=== PATIENT | female | born 1965 | race Caucasian/White ===

== ENCOUNTER 2023-10-20 09:30 | Outpatient (RCR) | payer MEDICAID, SELFPAY ==
--- NOTE | 2023-09-27 14:44 | HP.PTEVAL_ITS ---
Patient's Visit Information Visit Information Visit Information: GLENDA HAMPTON is a 58 year old F referred to Physical Therapy by Dr. Jurgen Jacobs MD with a diagnosis of Pain in L knee. Date of Evaluation: 09/27/23 Physical Therapist: Franco Vidales DPT Visit Plan Frequency: 1x/Week Duration: 6 Weeks Plan: Pt to attend aquatic therapy for 1x per week for 4 weeks, can drop to every other week if desired, pt motivated to become indep with ex quickly d/t cost 1) Address quad, hip, and glute strength 2) Stretch quads, ITB (HEP: glute bridges, LAQ, prone quad stretch) Subjective Subjective: Pt presents to PT with advanced knee arthritis and has been referred to Dr. Jacobs, here for pool therapy and will be receiving knee replacement late r this year. Pt would like to get back to being able to go out with less pain and stiffness, walking around at the store makes pain 10/10. Pt reports getting a pocket of fluid in lateral L knee after walking around for a while. Pt used knee brace to help with walking but was told not to wear it anymore. Sleeping is going okay, but gets stiff and needs to bend. Pt reports having to sit down multiple times per day to help with pain, rest, heat, and ice also help with pain. Pain gets down to 1 or 2/10 at best. Does not take pain meds. Went to chiropractor and was given exercises (SAQs) and feels they make her leg tired. Pt likes to bike, swim, and play with grandson. Pt has 2 steps at home and are painful. 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 Pain Left Knee: Pain Intensity (Out of 10): 2 Pain Intensity Range: 1 and 10 Objective Objective: ROM: L knee ext 0deg, flex 105 AROM, PROM 110 with pain MMT: global LE strength 3+/5 with some back pain during hip testing JOINT PLAY: little to no movement L patella, had some increased movement and soreness with gentle mobs GAIT: antalgic with decreased knee flex, mild valgus in L stance STAIRS: pt very hesitant to step down with RLE first, knee very unstable and painful when controlling descent STS: painful when in wbing, pt takes a few seconds to stand before beginning to walk PALPATION: tightness in L quad, L ITB, TTP distal insertion ITB and adductors, overdeveloped L peroneals and TTP Pt to participate in aquatic therapy for 4 weeks and perform HEP and ex in pool at home on her own in preparation for L knee replacement. Pt overall has LLE weakness and decreased knee ROM d/t advanced arthritis, leading to pain with prolonged walking and feeling of instability on stairs. 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 Pt would benefit from PT to address global LE strengthening in preparation for sx. PT Franco Vidales, direct supervision throughout eval. Balance/Special Test Scores Lower Extremity Functional Score: 30 Goals Goal 1:: Pt will report <5/10 pain at worst with walking through grocery store Goal Time Frame: 2-4 Weeks Goal 2:: Pt will improve global LE strength to 4/5 and no pain Goal Time Frame: 2-4 Weeks Goal 3:: Pt will demonstrate <2/10 with 5x STS Goal Time Frame: 2-4 Weeks Goal 4:: Pt will improve LEFS score to 40/80 Goal Time Frame: 2-4 Weeks Goal 5:: Pt will be able to sleep >6 hours without pain waking her up at night Goal Time Frame: 2-4 Weeks Rehabilitation Potential Physical Therapy Diagnosis: Pt presents to therapy with L knee pain and decreased strength/ROM secondary to advanced arthritis. Pt would benefit from PT services, specifically aquatic therapy, to address LE strength and tolerance to WBing with less pain. Rehabilitation Potential: Fair Anticipated Interventions Patient/Client Instruction: Educate patient on: Condition and Plan of Care For the Purpose of:: To decrease pain, To decrease swelling/inflammation, To increase ROM, To improve muscle performance and motor function, To improve ability to perform ADL's, To increase tolerance to activity/condition/position, To improve performance and independence with ADL's, To improve ability of physical actions for home/community/work/leisure, To improve gait and locomotor functions, To decrease soft tissue restriction, To increase flexibility/ROM, To improve safety with gait, To assume or resume ADL's, To foster healthy habits, To improve self management, To improve ability to perform tasks related to life management and To improve tolerance to ADL's Therapeutic Exercise to Include: Strength training and In an aquatic setting For the Purpose of:: To decrease pain, To improve muscle performance and motor function, To improve ability to perform ADL's, To improve performance and in dependence with ADL's, To improve ability of physical actions for home/community/work/leisure, To improve gait and locomotor functions, To decrease soft tissue restriction, To improve safety with gait, To assume or resume ADL's, To foster healthy habits, To improve self management, To improve ability to perform tasks related to life management and To improve tolerance to ADL's Text: Thank you for the opportunity to evaluate your patient. For Medicare and Medicare HMO plans, please review the plan of care and approve it. It will need to be FAXED BACK to us at [phone] for Medicare purposes. For Medicare only, by signing this I certify the plan of care. Please let me know if there are questions or concerns regarding this plan of care. Physician Signature: Date:
--- NOTE | 2023-11-16 09:41 | HP.PTDCSUM ---
Discharge Summary D/C summary: It has been my pleasure to treat GLENDA HAMPTON referred by Dr. Jurgen Jacobs MD, with the diagnosis of Pain in L knee for a total of 5 visit(s). Discharge Date: Please see the following information for a summary of their discharge status. Subjective Subjective: Pt reports that knee isn't bothering her as much today. Pain Left Knee: Pain Intensity (Out of 10): 4 Objective Objective/Function: Pt states that today is her last day of AT. Goals Goal 1:: Pt will report <5/10 pain at worst with walking through grocery store Goal 2:: Pt will improve global LE strength to 4/5 and no pain Goal 3:: Pt will demonstrate <2/10 with 5x STS Goal 4:: Pt will improve LEFS score to 40/80 Goal 5:: Pt will be able to sleep >6 hours without pain waking her up at night Plan Plan: Pt to attend aquatic therapy for 1x per week for 4 weeks, can drop to every other week if desired, pt motivated to become indep with ex quickly d/t cost 1) Address quad, hip, and glute strength 2) Stretch quads, ITB (HEP: glute bridges, LAQ, prone quad stretch) D/C Information d/c sentence: If there are questions or concerns regarding this patient's physical therapy, please feel free to call me at [phone]. Thank you for the referral of this patient. Sincerely, Franco Vidales, DPT Balance/Gait/Functional tests Balance/Special Test Scores Lower Extremity Functional Score: 30
== END 2023-10-20 19:00 | disposition home or self-care (01) ==
LOC: PT 09:30
PROVIDERS: PCP Family Medicine; Referring Provider Specialist; Visit Provider Specialist
DX: M25.562 Pain in left knee (principal)
CPT/HCPCS: 97113; 97161

== ENCOUNTER → 2024-01-25 | Outpatient (CLI) | payer MEDICAID, SELFPAY ==
--- NOTE | 2024-01-25 06:42 | CT_ITS ---
STUDY: CT LEFTLOWER EXTREMITY WITHOUT CONTRAST REASON FOR EXAM: Female, 58 years old. PAIN IN LEFT KNEE NI RADIATION DOSAGE (If Supplied By Facility): CTDIvol = ( 19.29 ) mGy, DLP = ( 1410.19 ) mGycm TECHNIQUE: Thin section transaxial imaging of the ankle was obtained, with sagittal and coronal reconstructed images. Individualized dose optimization techniques were used for this CT. COMPARISON: X-ray of the left knee dated August 27, 2023 Hip findings: Normal femoral head, neck, intertrochanteric region and visualized proximal femur. Normal acetabulum. There is mild to moderate axial narrowing of the bilateral hip joints. No cortical spurring is present. No demonstrated subcortical cyst or avascular necrosis. No occult fractures are seen. Normal visualized superior and inferior pubic rami and ischial tuberosities. Normal superior and inferior pubic rami. Normal pubic symphysis. Normal ischial tuberosity. Normal origin of the hamstring tendons. Rectosigmoid diverticulosis is present. The remaining visualized intrapelvic structures are grossly unremarkable. Knee findings: The medial compartment is severely narrowed with [id number] contact and moderate to bulky peripheral cortical osteophyte formation on both sides of the joint space. The inner aspect of the lateral compartment is mildly narrowed. Mild peripheral cortical osteophytes are also present. Large loose bodies are present in the anterior and posterior aspect of the joint space. A small joint effusion is also present. Normal proximal tibiofibular articulation. The patellofemoral compartment is moderately narrowed, and with secondary cortical osteophyte formation as well. The quadriceps tendon is grossly normal. The patellar tendon is grossly normal. Normal Hoffa''s fat pad. The soft tissues are unremarkable. CT/Extremity Lower without Contra IMPRESSION: 1. Tricompartmental DJD of the knee joint which is severe in the medial compartment Electronically Signed: Keny Davis MD at 8:17 EDT ,
== END | disposition home or self-care (01) ==
LOC: CT 06:42
PROVIDERS: PCP Family Medicine; Referring Provider Specialist; Visit Provider Specialist
DX: M25.562 Pain in left knee (principal); M17.12 Unilateral primary osteoarthritis, left knee
CPT/HCPCS: 73700

== ENCOUNTER 2024-02-14 06:38 | Observation (INO) | payer MEDICAID, SELFPAY ==
--- NOTE | 2024-01-25 06:41 | EKG12_ITS ---
Test Reason : PREOP Blood Pressure : / mmHG Vent. Rate : 057 BPM Atrial Rate : 057 BPM P-R Int : 116 ms QRS Dur : 090 ms QT Int : 430 ms P-R-T Axes : 019 047 041 degrees QTc Int : 418 ms Sinus bradycardia Otherwise normal ECG Confirmed by CAROLYNN ZHONG, GARRY ([id number]), editorial director BOY RAMIREZ ([id number]) on 01/25/2024 2:15:02 PM Referred By: Jurgen Jacobs Confirmed By:GARRY PRADHAN MD
[2024-01-25 08:41] LABS: Absolute Lymphocyte Count 3.18 X10^3/uL (0.83-4.51); Absolute Neutrophil Count 3.8 X10^3/uL (2.0-7.7); Basophil% 1.3 % (0-1); Eosinophil# 0.24 X10^3/uL; Eosinophils% 3.1 % (0-5); Hematocrit 42.8 % (37-47); Hemoglobin 13.9 g/dL (12.0-15.0); Lymphocyte # 3.18 X10^3/ul (0.83-4.51); Lymphocyte % 40.5 % (19-41); Mean Corp Hgb Conc 32.5 g/dL (32-36); Mean Corpuscular Hgb 31.3 pg (27.0-32.0); Mean Corpuscular Volume 96.4 fL (81-99); Mean Platelet Vol. 10.4 fl (6.2-12.0); Monocyte# 0.48 X10^3/uL; Monocyte% 6.1 % (0-10); NRBC Flagged by Analyzer 0 % (0-5); Neutrophil # 3.83 X10^3/uL (2.7-7.7); Neutrophil % 48.7 % (47-70); Platelet Count 300 K/mm3 (150-450); RBC Distribution Width CV 13.2 % (11.6-14.6); RBC Distribution Width SD 47.4 fl (35.1-43.9); Red Blood Count 4.44 M/mm3 (4.2-5.4); White Blood Count 7.9 K/mm3 (4.4-11.0)
[2024-01-25 09:06] LABS: Partial Thromboplast Time 28.9 Seconds (24.1-36.2); Prothrombin Time (Protime)PT. 12.8 SECONDS (11.7-14.9)
[2024-01-25 09:21] LABS: Anion Gap 6 (5-15); BUN 15 mg/dL (7-18); BUN/Creat Ratio 18.8 RATIO (10-20); Calcium,Total 9.8 mg/dL (8.5-10.1); Chloride 107 mmol/L (98-107); EST Glomerular Filtration Rate 79 mL/min (>60); Est Glom Filt Rate - Afr Amer 95 mL/min (>60); Glucose 95 mg/dL (74-106); Sodium Level 140 mmol/L (136-145)
[2024-01-25 09:32] LABS: AST(SGOT) 19 U/L (15-37); Alanine Aminotransfer ALT/SGPT 21 U/L (13-56); Albumin, Serum 3.7 g/dL (3.2-5.0); Alkaline Phosphatase 85 U/L (45-117); Bilirubin, Direct 0.14 mg/dL (0.00-0.30); Globulin 4.1 g/dL (2.2-4.2); Magnesium 2.3 mg/dL (1.6-2.6); Protein, Total 7.8 g/dL (6.4-8.2)
[2024-02-14] VITALS (13 sets, daily range): BP systolic 106–135; BP diastolic 53–102; PULSE 60–88; RESP 16–20; TEMP 35.7–36.9; O2SAT 92–100; BMI 43.4
[2024-02-14] MEDS: Celecoxib 200 MG Capsule 400 MG PO (07:13)
[2024-02-14] MEDS: Acetaminophen 500 MG Tablet 1000 MG PO ×2 (07:13→21:10)
[2024-02-14] MEDS: Gabapentin 600 MG Tablet PO (07:13)
--- NOTE | 2024-02-14 07:23 | PRE.ANES_ITS ---
ASA Classification* ASA Classification ASA Classification: 3 Assessment & Plan Anesthesia* Anesthesia Assessment Anesthesia Assessment: Discussed sedation and/or anesthesia options, risks, benefits, and alternatives with patient/parents/legal guardian/POA. Questions invited. The patient/parents/legal guardian/POA seems to understand and agrees to proceed with anesthesia plan. Reviewed the physical assessment, medical history, allergy history and patient home medications list prior to surgery/procedure/anesthetic and documented any changes. Performed airway and anesthesia risk assessments. Anesthesia Type Anesthesia Type: Spinal (ga bkup. 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 When Was Last Pacemaker Check QUESTION #4 FULL TEXT: You/Your Family Experience fever (hyperthermia) with Anesthesia Last Oral Intake Last Oral intake: Last Oral Intake NPO since 04:30 02/14/24 07:08 Meds taken in AM with sips of No 02/14/24 07:08 water? Meds patient instructed to take am of surgery PONV PONV - pipe organ mechanic apprentice: PONV - pipe organ mechanic apprentice Female Yes 01/20/24 08:10 HX of Motion Sickness No 01/20/24 08:10 HX of N/V After Surgery No 01/20/24 08:10 Non-Smoker Yes 01/20/24 08:10 Duration of Surgery greater Yes 01/20/24 08:10 than 60 minutes Number of Risk Factors 3 01/20/24 08:10 PONV Score Moderate Risk 01/20/24 08:10 Height & Weight Height & Weight: Anesthesia: Height & Weight Height 5 ft 02/14/24 07:08 Weight: 100.879 kg 02/14/24 07:08 Body Mass Index (BMI) 43.4 02/14/24 07:08 Respiratory Assessment Respiratory Assessment - pipe organ mechanic apprentice: Respiratory Tract Infection Hx - pipe organ mechanic apprentice Hx Respiratory Tract Infection No 01/20/24 08:10 STOP Sleep Apnea STOP Sleep Apnea - pipe organ mechanic apprentice: STOP Sleep Apnea - pipe organ mechanic apprentice Hx Hypertension No 01/20/24 08:10 Hx Sleep Apnea No 01/20/24 08:10 CPAP BIPAP Do you snore loudly (louder No 01/20/24 08:10 than talking or can be heard Do you often feel tired/ No 01/20/24 08:10 fatigued/ sleepy during daytime? Has anyone observed you stop No 01/20/24 08:10 breathing during sleep? STOP Results Negative 01/20/24 08:10 QUESTION #5 FULL TEXT : Do you snore loudly (louder than talking or can be heard through closed doors)? 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 Specify any problems Hx of Preganancy in last 3 No 01/20/24 08:10 Months Nurse Filling Out Transfusion [id number] 01/20/24 08:10 & Questions: Date: 01/20/24 01/20/24 08:10 Time: 08:15 01/20/24 08:10 Patient unable to answer at this time (ie. confused, unrespo /Reproduction History /Reproductive History - pipe organ mechanic apprentice: /Reproductive Hx- pipe organ mechanic apprentice Hx Now Gestational Age (in weeks): EDC: Hx Hx Para Hx Section SAB Active Medications Active Medications: Current Medications Generic Name Dose Route Start Last Admin Trade Name Freq PRN Reason Stop Dose Admin Acetaminophen 1,000 mg 02/14/24 08:45 Acetaminophen 500 Mg Tablet PO 02/14/24 08:46 X1 ONE Acetaminophen 1,000 mg 02/14/24 14:00 Acetaminophen 500 Mg Tablet PO Q8 [facility] Aspirin 81 mg 02/14/24 10:00 Aspirin 81 Mg Tab.Chew PO BID [facility] Celecoxib 400 mg 02/14/24 08:45 Celecoxib 200 Mg Capsule PO 02/14/24 08:46 X1 ONE Cholecalciferol 125 mcg 02/14/24 10:00 Cholecalciferol (Vit D3) 125 Mcg Capsule (5,000 Units) PO DAILY [facility] Sodium Chloride 77.9 ml/ 0 ml 02/14/24 08:45 Ropivacaine 200 mg/ OPERA.SITE 02/14/24 08:46 Epinephrine HCl 0.6 mg/ X1 ONE Ketorolac Tromethamine 30 mg/ Morphine Sulfate 5 mg Dexamethasone Sodium Phosphate 10 mg 02/14/24 08:45 Dexamethasone 10 Mg/Ml Vial IV 02/14/24 08:46 X1 ONE Enteral Nutritional Formula 237 ml 02/14/24 08:00 Ensure Surgery 237 Ml Liquid PO TIDCM [facility] Famotidine 20 mg 02/14/24 10:00 Famotidine 20 Mg Tablet PO DAILY [facility] Gabapentin 600 mg 02/14/24 08:45 Gabapentin 600 Mg Tablet PO 02/14/24 08:46 X1 ONE Lactated Ringer's 1,000 mls @ 999 mls/hr 02/14/24 08:45 IV 02/14/24 09:45 .Q1H1M [facility] Cefazolin Sodium 2 gm/ Sodium 110 mls @ 150 mls/hr 02/14/24 08:45 Chloride IV 02/14/24 09:28 PREOP ONE Tranexamic Acid 1,000 mg/ 110 mls @ 660 mls/hr 02/14/24 08:45 Sodium Chloride IV 02/14/24 08:54 X1 ONE Tranexamic Acid 1,000 mg/ 110 mls @ 660 mls/hr 02/14/24 08:45 Sodium Chloride IV 02/14/24 08:54 X1 ONE Lactated Ringer's 1,000 mls @ 999 mls/hr 02/14/24 08:45 IV 02/14/24 09:45 .Q1H1M [facility] Lactated Ringer's 1,000 mls @ 125 mls/hr 02/14/24 08:45 IV 02/14/24 16:44 .Q8H [facility] Magnesium Sulfate 1 gm/ 102 mls @ 408 mls/hr 02/14/24 08:45 Dextrose IV 02/14/24 08:59 X1 ONE Lactated Ringer's 1,000 mls @ 15 mls/hr 02/14/24 06:45 IV .Q48H [facility] Cefazolin Sodium 1 gm in 50 mls @ 150 mls/hr 02/14/24 14:00 IV 02/14/24 22:19 Q8 [facility] Insulin Human Lispro 1 - 6 unit 02/14/24 08:45 Insulin Lispro 100 Unit/Ml Insuln.Pen SC 02/14/24 18:00 Q4H PRN PRN BG>/= 180, SEE PROTOCOL Protocol Ketorolac Tromethamine 15 mg 02/14/24 06:38 Ketorolac 15 Mg/Ml Vial IV 02/16/24 06:39 Q6H PRN PRN Pain Score 1-5 Meloxicam 7.5 mg 02/16/24 10:00 Meloxicam 7.5 Mg Tablet PO BID [facility] Morphine Sulfate 2 - 4 mg 02/14/24 06:38 Morphine 2 Mg/Ml Syringe IV Q2H PRN PRN Pain Score 6-10 Ondansetron HCl 4 mg 02/14/24 06:38 Ondansetron 4 Mg/2 Ml Vial IV Q8H PRN PRN NAUSEA Oxycodone HCl 5 - 10 mg 02/14/24 06:38 Oxycodone 5 Mg Tablet PO Q4H PRN PRN Pain Score 4-10 Promethazine HCl 12.5 mg 02/14/24 06:38 Promethazine 25 Mg/Ml Syringe IM Q6H PRN PRN NAUSEA/VOMITING Protocol Senna/Docusate Sodium 2 tablet 02/14/24 10:00 Senna/Docusate Sodium 1 Tablet PO BID [facility] Sodium Chloride 5 - 15 ml 02/14/24 08:45 0.9% Nacl Peripheral Flush Adult/Peds IV UD PRN SALINE FLUSH Anesthesia Focused Assessment* Temperature: 97.3 F Pulse Rate: 81 Blood Pressure: 133/68 Respiratory Rate: 16 Pulse Ox: 99 Airway Assessment Mouth opens: >3 cm Mallampati Score: II Focused Labs Anesthesia Preop lab: CBC WBC 7.9 K/mm3 (4.4-11.0) 01/25/24 07:15 RBC 4.44 M/mm3 (4.2-5.4) 01/25/24 07:15 Hgb 13.9 g/dL (12.0-15.0) 01/25/24 07:15 Hct 42.8 % (37-47) 01/25/24 07:15 Plt Count 300 K/mm3 (150-450) 01/25/24 07:15 CHEMISTRY Potassium 4.0 mmol/L (3.5-5.1) 01/25/24 07:15 Sodium 140 mmol/L (136-145) 01/25/24 07:15 Magnesium 2.3 mg/dL (1.6-2.6) 01/25/24 07:15 BUN 15 mg/dL (7-18) 01/25/24 07:15 Creatinine 0.80 mg/dL (0.55-1.02) 01/25/24 07:15 Glucose 95 mg/dL (74-106) 01/25/24 07:15 COAG PT 12.8 SECONDS (11.7-14.9) 01/25/24 07:15 Review of Systems (Anesthesia) ROS Narrative System reviewed and no additional complaints, except as documented. ON LICENSE OF [facility] Medical History Wears glasses Arthritis Easy bruising Former smoker Left knee pain Scoliosis Home Medications ?Medication ?Instructions ?Recorded ?Last Taken ?Type cholecalciferol (vitamin D3) 125 125 mcg PO DAILY 02/05/21 02/08/24 History mcg (5,000 unit) capsule Allergy/AdvReac Type Severity Reaction Status Date / Time No Known Allergies Allergy Verified 02/14/24 07:05 Social History Smoking Status: Former smoker
[2024-02-14] MEDS: Lactated Ringers 1,000 ML 999 ML IV ×2 (07:26→08:15)
[2024-02-14] MEDS: Magnesium 1 GM over 15 mins IV (07:27)
[2024-02-14] MEDS: Lactated Ringers 1,000 ML 75 ML IV ×2 (07:33→21:18)
[2024-02-14 08:07] LABS: Bedside Glucose 85 mg/dL (74-106)
[2024-02-14] MEDS: Cefazolin 2 GM in 0.9% Normal Saline (100mL Bag) 100 ML IV (08:22)
--- NOTE | 2024-02-14 08:45 | KNEE_PTH ---
PATIENT: GLENDA HAMPTON LOC: [facility]3 U#:[id number] AGE/SX: 58/F ROOM: [facility]315 RE02/14/[address]: Dr. Jurgen Jacobs MD : 1965 BED: 1 DIS: 02/15/2024 SPEC #: [id number] RECD: 02/14/24 10:50 STATUS: VELIA REAlexsandra #: [id number] TRU: 02/14/24 08:[address]: Jurgen Jacobs DEPT: SURGICAL PATHOLOGY RECD BY: Jessi Verduzco ENTERED: 02/14/24 11:19 SP TYPE: TOTAL KNEE OTHR DR: Dr. Timo Baumann MD Tissues: Knee, NOS Procedures: Decalcification bone/plaque Surgery Specimen Level IV HEADER OPERATION: LETI, robotic assisted left total knee arthroplasty PRE-OP DIAGNOSIS: Grade IV osteoarthritis left knee TISSUE SUBMITTED: Left bone and soft tissue MICROSCOPIC DIAGNOSIS Bone and soft tissue, left knee, total knee replacement/resection: Pieces of bone with degenerative osteoarthritic changes. Fibroadipose tissue, fibroconnective tissue and reactive synovial tissue. ASAD: 02/17/2024 MICROSCOPIC DESCRIPTION Slides are reviewed. GROSS DESCRIPTION Received is one container designated bone and soft tissue left knee. The specimen consists of multiple fragments of gibson-yellow bone measuring in aggregate 11.0 x 11.0 x 3.5cm. Also in the specimen container are multiple fragments of yellow-white soft tissue measuring in aggregate 6.0 x 3.0 x 2.0cm. A number of bony fragments contain articular surfaces consistent with tibial plateau and femoral condyle and displaying prominent osteophyte formation, eburnation and bone erosion. Games Dealer sections are submitted in two cassettes as follows: 1 - soft tissue, 2 - bone after decalcification. / ASAD/ 02/14/2024 TC:5 CPT: 39910, 55152
[2024-02-14] MEDS: TXA 1000mg in NS100 100ml (IVPB at Incision) 660 MG IV (08:47)
[2024-02-14] MEDS: dexAMETHasone 10 MG/ML Vial IV (09:31)
[2024-02-14] MEDS: TXA 1000mg in NS100 100ml (IVPB at Closure) 660 MG IV (09:53)
--- NOTE | 2024-02-14 09:59 | PCM.OPRPT ---
Report of Operation Date of Procedure: 02/14/24 Pre-Operative Diagnosis: Left knee primary osteoarthritis Post-Operative Diagnosis: Left knee primary osteoarthritis Surgery/Procedure Performed:: Left knee minimally invasive robotic assisted total knee replacement Description of Surgical Findings:: Stable knee with good patella tracking Surgeon: Jurgen Jacobs civil preparedness coordinator: Henok Miranda Type of Anesthesia: Spinal Anesthesiologist: Galileo Rogers Special Medications: 2 g Ancef, 1 g TXA at incision, 1 g TXA closure, 10 mg Decadron, joint cocktail (5 mg Duramorph, 30 mL of 0.5% Ropivicaine, 1000 units of epinephrine, 30 mg of Toradol) Specimen's removed: Bony cuts Estimated Blood Loss (mL): 100 Fluids Replaced: 1600 mL crystalloid Description of Procedure: Implants used: 1. Thompson size 4 triathlon cruciate retaining distal femoral press-fit component 2. [place] size 5 press-fit tritanium tibial baseplate 3. Thompson X3 13 mm CS polyethylene 4. [place] X3 29mm asymmetric patella Brief history operative indications: 58-year-old f with history of left knee osteoarthritis with radiographic findings with loss of joint space, osteophyte formation and subchondral sclerosis. Failed conservative measures as mentioned in the H&P. Discussion of total knee arthroplasty as well as risk and benefits were discussed the patient including but not limited to blood loss, DVTs, PEs, neurovascular damage, general risk of anesthesia including loss of life, and stiffness or instability were discussed with patient. Patient demonstrated understanding and was able to sign informed consent. Procedure: On the date of procedure patient's left lower extremity was marked in the preoperative area. The patient was then taken back to the operating room where the patient was placed on the table in the supine position. All bony prominences were identified a well-padded. Anesthesia assumed control of the C-spine and airway and remained controlled throughout the remainder of the procedure. A tourniquet was placed on the left upper thigh and the leg was prepped in a sterile fashion. The surgeon then scrubbed at this time .Upon reentering the room left lower extremity was draped in a standard orthopedic fashion. A timeout was then called and everyone agreed upon the side, the site, the procedure to be performed, patient's identity and antibiotics given. Esmarch bandage was used to exsanguinate the extremity and the tourniquet was placed up to 250 mmHg with the knee in flexion. A midline skin incision was made and sharp dissection was taken down through skin subcutaneous tissue and fat. The standard medial parapatellar incision was made and the patella was subluxed laterally. An Appropriate deep MCL release was done and the fat pad was resected. Our attention was then directed to the patella. The patella was everted and a flat resection was made. The knee was then flexed up in 2 femoral pins were placed inside the incision and 2 tibial pins were placed outside the incision in the medial tibia bicortically. Once this was completed the 2 checkpoints in the femur and tibia were placed. Knee was then flexed up and the bony landmarks were registered. Once this was completed knee was taken through range of motion and manually stressed allowing us to a plan for an appropriate tibial cut. The robotic arm was brought into the field sterilely and checkpoint and saw were registered. Based on the patient's deformity the tibial cut was made in 2 degrees of varus. At this time the tensioner was then placed in the joint and ligament tension was checked at 90 degrees and full extension. Based on the patient's ligamentous tension appropriate adjustments were made to the operative plan and ligament releases were done. Once we were happy with our operative plan with balanced flexion and extension gaps our attention was directed to the femur. The robot was brought into the field sterilely and registered. Posterior condylar cuts, anterior chamfer cuts and anterior cuts were appropriately made for a size 4 femur. When these were completed the saws were switched out in the distal femoral and posterior chamfer cuts were made. Protecting the soft tissue throughout this time. A size 5 tibial base plate was selected. the knee was flexed to 90 degrees and the soft tissues and posterior osteophytes were removed from the joint. 40 cc of the periarticular injection was injected into the posterior medial corner of the joint. The appropriate trials were then placed on the femur and tibia. A trial polyethylene was trialed to ensure proper balancing and stability of the knee. The appropriate tibial internal rotation was then marked with a bovie. Our attention was then directed to the patella. The lug holes were drilled and the patella trial was placed. Patellar tracking was checked and deemed appropriate. Once we were happy lug holes were drilled for the femur and trial components were removed. the tibia was subluxed and pinned into place and the keel was punched and drilled appropriately. Final components were verified and opened, and cement was mixed in a vacuum. ResiModel Simplex cement was used. The wound was copiously irrigated with normal saline. When the cement was ready the components were impacted into place starting with the tibia, femur and finally cementing the patella. The trial poly component was placed and the knee was placed in full extension. All excess cement was removed in the process. Once the cement had cured the tracking, alignment and balance were verified and a size 13 mm CS polyethylene component was placed. Once the final components were placed a 3-minute dilute Betadine lavage was performed followed by an Irrisept lavage was performed and the wound was copiously irrigated with normal saline solution and the periarticular injection was given. The wound was closed in a layer muniz fashion using #1 vicryl interrupted sutures for the arthrotomy, 2-0 interrupted Vicryl suture for the subcuticular layer and radha for final skin closure. A sterile compressive dressing was then placed. The patient was then awakened from anesthesia, transferred to the rrosalia and transferred to the PACU for recovery. Post op plan DVT ppx: ASA 81mg BID, thigh high compression stockings Follow up: in office in 2 weeks for wound check PT: to start POD #0 at hospital, outpatient PT should be arranged. My physician loan assistant was a vital part of this case. He was important in appropriate retraction during the case, and protection of soft tissues during bony cuts. His intimate knowledge of the case and my steps aided in safe and expedient completion of the procedure as well as appropriate position of the leg during the case. He was also vital in assisting with closure under my direct supervision. Due to the complexity of this case robotic arm was used to assist in the surgery to improve accuracy and clinical outcomes. Complications No intraoperative complications Admit VTE Documentation VTE Present on Admission: No VTE Mechan Device Prophylaxis: SCD's and Thigh High CHUY Hose VTE Pharm Prophylaxis ordered?: Yes
[2024-02-14] MEDS: JPS (Morphine 10mg/ml) OPERA.SITE (10:08)
[2024-02-14] MEDS: Lactated Ringers 1,000 ML 125 ML IV (10:45)
--- NOTE | 2024-02-14 11:00 | RAD_ITS ---
STUDY: X-RAY - LEFT KNEE REASON FOR EXAM: Female, 58 years old. Post op -- AP and Lateral xray of operative knee in PACU TECHNIQUE: 2 view(s) of the knee. COMPARISON: Comparison is made with prior study dated August 27, 2023. FINDINGS: Normal visualized distal femur. Normal visualized proximal tibia and fibula. Normal proximal tibiofibular articulation. The patient is status post left total knee replacement. Is good alignment. Postoperative soft tissue changes. RAD/Knee 1 or 2 Views IMPRESSION: Status post left total knee replacement. There is good alignment. Postoperative soft tissue changes. Electronically Signed: Robbin Dickens MD at 11:19 EDT ,
--- NOTE | 2024-02-14 11:44 | PCM.POST.ANE ---
Anesthesia: Postop Eval I Current Vital Signs Temperature: 206.6 F Pulse Rate: 85 Blood Pressure: 123/102 Respiratory Rate: 16 Pulse Ox: 98 Oxygen Delivery Method: Nasal Cannula Oxygen Flow Rate (L/min): 2 Assessment Airway patent: Yes Spontaneous unlabored respirations: Yes Mental status: Awake nausea: No Vomiting: No Anesthesia Complication: No Fluid Hydration Crystalloid volume administer (ml): 1,600 Total IV fluid infused: 1,600 Progress Note Anesthesia document: Postop Eval 1 completed: Yes
[2024-02-14] MEDS: Ondansetron 4 MG/2 ML Vial IV (12:50)
--- NOTE | 2024-02-14 14:33 | PCM.PN.HOSP ---
Reason for Visit Reason for Visit: Diagnoses Encounter for other preprocedural examination (02/14/24) Subjective Subjective Patient is a 58-year-old female with primary OA of left knee and morbid obesity who presented to [facility] 02/14/2024 for Left knee minimally invasive robotic assisted total knee replacement. Hospitalist contacted for medical management. Patient evaluated at bedside, reports she takes no medicines at home at this time and other than some aching in the postsurgical knee she has no physical complaints Objective Data Objective Data Vital Signs: Vital Signs Temp Pulse Resp BP Pulse Ox O2 Del Method O2 Flow Rate 96.3 F L 60 18 106/70 100 Nasal Cannula 2 02/14/24 12:13 02/14/24 12:13 02/14/24 12:13 02/14/24 12:13 02/14/24 12:13 02/14/24 12:13 02/14/24 12:13 Oxygen Flow Rate (L/min) 2 Oxygen Delivery Method Nasal Cannula Weight: 100.879 kg Body Mass Index (BMI) 43.4 Intake & Output: Intake and Output for Last 24 Hours 02/12/24 02/13/24 02/14/24 23:59 23:59 23:59 Intake Total 2432 / 2432 Balance 2432 / 2432 Lab / Micro Data 01/25/24 07:15 01/25/24 07:15 Labs: Laboratory Results - last 24 hr 02/14/24 07:04: POC Glucose 85 Micro: Microbiology 01/25/24 07:15 Swab (Method) Nasal Screen MRSA/MSSA - Final Radiography Diagnostic Testing: Radiology Impression Knee X-Ray 02/14/24 11:00 IMPRESSION: Status post left total knee replacement. There is good alignment. Postoperative soft tissue changes. Electronically Signed: Robbin Dickens MD at 11:19 EDT , Physical Exam Narrative General: Alert, oriented, no apparent distress HEENT: Atraumatic, normocephalic Eyes: Anicteric, normal conjunctiva, extraocular movements grossly intact Neck: Supple Respiratory: Clear to auscultation bilaterally, normal respiratory effort Cardiovascular: Regular rate and rhythm GI: Soft, nontender, nondistended Extremities: No edema Musculoskeletal: Left lower extremity status post surgery Neuro: No overt focal neurological deficits Skin: No rashes appreciated Psych: Cooperative Assessment & Plan Assessment/Plan (1) Primary osteoarthritis of left knee: (2) Obesities, morbid: PLAN: Plan #Left knee OA -s/p 02/13 Left knee minimally invasive robotic assisted total knee replacement w/ Dr. Jacobs -PT/OT -Management per primary #Vitamin D supplementation -Patient reports she has not been on this for 5 or 6 days if she was told to stop all of her medications -Can resume at the discretion of her prescribing physician #Morbid obesity -BMI 43.4 kg/m? -Complicates treatment, prognosis, outcomes -Recommend weight loss and lifestyle changes #DVT ppx: Management per primary, currently on aspirin 81 mg twice daily --Pt doing well post surgery, no medical complaints, vitally stable, and no home medications. Will sign off, please renotify if needed. Abigail Mulligan MD
[2024-02-14] MEDS: 0.9% Normal Saline (250mL Bag) 250 ML 15 ML IV (16:39)
[2024-02-14] MEDS: Cefazolin 1 GM/50 ML BAG IV ×2 (16:39→23:37)
[2024-02-14] MEDS: Aspirin 81 MG TAB.CHEW PO (16:39)
[2024-02-14] MEDS: Ensure Surgery 237 ML LIQUID PO (16:59)
[2024-02-14] MEDS: 0.9% NaCl Peripheral Flush Adult/Peds IV (16:59)
[2024-02-14] MEDS: Senna/Docusate Sodium 1 Tablet 2 TABLET PO (21:10)
[2024-02-15 06:00] VITALS: BP 132/72; PULSE 74; RESP 16; TEMP 36.5; O2SAT 99
[2024-02-15] MEDS: Acetaminophen 500 MG Tablet 1000 MG PO ×2 (06:15→13:55)
[2024-02-15 06:50] VITALS: O2SAT 97
[2024-02-15] MEDS: oxyCODONE 5 MG Tablet PO ×3 (07:30→16:06)
[2024-02-15] MEDS: Aspirin 81 MG TAB.CHEW PO ×2 (07:52→16:08)
[2024-02-15] MEDS: Senna/Docusate Sodium 1 Tablet 2 TABLET PO (07:52)
[2024-02-15] MEDS: Ketorolac 15 MG/ML Vial IV ×2 (07:52→16:06)
[2024-02-15] MEDS: Cholecalciferol (Vit D3) 125 MCG CAPSULE (5,000 UNITS) PO (07:53)
[2024-02-15] MEDS: 0.9% NaCl Peripheral Flush Adult/Peds IV ×2 (07:54→16:07)
[2024-02-15] MEDS: Famotidine 20 MG Tablet PO (07:54)
[2024-02-15 07:59] VITALS: BP 122/72; PULSE 65; RESP 18; TEMP 36.6; O2SAT 100
[2024-02-15 08:00] LABS: Anion Gap 3 (5-15); BUN 8 mg/dL (7-18); BUN/Creat Ratio 12.2 RATIO (10-20); Calcium,Total 8.9 mg/dL (8.5-10.1); Chloride 112 mmol/L (98-107); Creatinine, Serum 0.66 mg/dL (0.55-1.02); EST Glomerular Filtration Rate 99 mL/min (>60); Est Glom Filt Rate - Afr Amer 120 mL/min (>60); Estimated Creatinine Clearance 100.44 ml/min; Glucose 103 mg/dL (74-106); Potassium 3.8 mmol/L (3.5-5.1); Sodium Level 143 mmol/L (136-145)
[2024-02-15 09:40] LABS: Hematocrit 36.1 % (37-47); Hemoglobin 11.7 g/dL (12.0-15.0); Mean Corp Hgb Conc 32.4 g/dL (32-36); Mean Corpuscular Hgb 31.5 pg (27.0-32.0); Mean Corpuscular Volume 97.3 fL (81-99); Mean Platelet Vol. 10.5 fl (6.2-12.0); Platelet Count 310 K/mm3 (150-450); RBC Distribution Width CV 13.3 % (11.6-14.6); RBC Distribution Width SD 47.8 fl (35.1-43.9); Red Blood Count 3.71 M/mm3 (4.2-5.4)
--- NOTE | 2024-02-15 09:52 | POSTOPAN2_ITS ---
Anesthesia Postop Eval I Sum Postop Eval Completion status Anesthesia document: Postop Eval 1 completed: Yes Anesthesia Postop Eval I Summary Anesthesia Postop Eval I Summary: Anesthesia Postop Eval I: Assessment Summary Airway patent Yes 02/14/24 11:45 ATTORNEY [email or web address] Spontaneous unlabored Yes 02/14/24 11:45 ATTORNEY [email or web address] respirations Mental status Awake 02/14/24 11:45 ATTORNEY [email or web address] nausea No 02/14/24 11:45 ATTORNEY [email or web address] Vomiting No 02/14/24 11:45 ATTORNEY [email or web address] Anesthesia Postop Eval I: Fluid Summary Crystalloid volume administer 1,600 02/14/24 11:45 ATTORNEY [email or web address].MDOT (ml) Colloids volume administered ( ml) Blood Product volume administered (ml) Total IV fluid infused 1,600 02/14/24 11:45 ATTORNEY [email or web address].MDOT Anesthesia Postop Eval I: Summary Notes Anesthesia Complication No 02/14/24 11:45 ATTORNEY [email or web address].MDOT Anesthesia Complication Comment: Post-operative progress note Anesthesia: Postop Eval II Evaluation Mental status: Awake and Calm Pain Level: 1 nausea: No Vomiting: No Complications Anesthesia Complication: No
--- NOTE | 2024-02-15 09:52 | PCM.POSTANE2 ---
Anesthesia Postop Eval I Sum Postop Eval Completion status Anesthesia document: Postop Eval 1 completed: Yes Anesthesia Postop Eval I Summary Anesthesia Postop Eval I Summary: Anesthesia Postop Eval I: Assessment Summary Airway patent Yes 02/14/24 11:45 [email or web address] [email or web address] Spontaneous unlabored Yes 02/14/24 11:45 BRASS [email or web address] respirations Mental status Awake 02/14/24 11:45 BRASS [email or web address] nausea No 02/14/24 11:45 BRASS [email or web address].MDOT Vomiting No 02/14/24 11:45 BRASS [email or web address] Anesthesia Postop Eval I: Fluid Summary Crystalloid volume administer 1,600 02/14/24 11:45 BRASS [email or web address] (ml) Colloids volume administered ( ml) Blood Product volume administered (ml) Total IV fluid infused 1,600 02/14/24 11:45 BRASS [email or web address] Anesthesia Postop Eval I: Summary Notes Anesthesia Complication No 02/14/24 11:45 BRASS [email or web address] Anesthesia Complication Comment: Post-operative progress note Anesthesia: Postop Eval II Evaluation Mental status: Awake and Calm Pain Level: 1 nausea: No Vomiting: No Complications Anesthesia Complication: No
--- NOTE | 2024-02-15 10:45 | CASEMGMT ---
RUTH GOMEZ Assessment: Face to Face with pt for initial transition planning/care coordination assessment. RUTH GOMEZ introduced self and role at [facility], pt voices understanding and consents to assessment. Pt is A&O x4 and answers all questions appropriately at this time. Pt sitting up in bed in no distress with dtr at bedside. Pt agreeable to assessment with dtr present. Care providers, pharmacy, and demographics verified/updated. Admitting Dx: robotic assisted left total knee PCP:Pastor Specialists:krish Jacobs Pharmacy: [facility] Insurance: [employer] Prescription Benefit: yes LNOK: Dae Larson, Living Arrangements: Pt lives with in a single story home with 2 steps to enter. Pt dtr lives downstairs with a completely separate entrance. Pt reports she was I in ADLs and IADLs prior to surgery. Pt denies concerns at home. Transportation: Pt drives self and denies concerns with transportation. Pt dtr will transport pt until pt can drive again. DME:raised toilet seat, FWW, walk in shower with built in seat HHC/SNF: Denies hx of Pt states no concerns with going home at time of dc. Pt states she feels she did well with therapy this morning. Pt has outpt therapy set up on at [facility]. Pt states no further concerns/needs. CM to follow. Advised pt to ask CM if any further question/concerns/needs arise, voices understanding. Pt Goal: Home with outpt therapy already set up Plan: Home with outpt therapy already set up [place] MIRANDA CM
[2024-02-15 11:38] VITALS: BP 123/73; PULSE 73; RESP 18; TEMP 36.6; O2SAT 100
--- NOTE | 2024-02-15 16:03 | PCM.PN.ORT ---
Subjective Subjective The patient was sitting in bed upon examination with family member present. Patient denies any chest pain, shortness of breath, dizziness, lightheadedness, nausea or vomiting, or calf pain. Pain is controlled on medications. No adverse overnight events. Patient does have pain with her left knee and does complain of soreness. Plan is for her to go home with outpatient physical therapy. She did well with therapy today. Objective Data Objective Data Vital Signs: Vital Signs Temp Pulse Resp BP Pulse Ox O2 Del Method O2 Flow Rate 97.9 F 73 18 123/73 H 100 Room Air 2 02/15/24 11:38 02/15/24 11:38 02/15/24 11:38 02/15/24 11:38 02/15/24 11:38 02/15/24 11:38 02/14/24 12:13 Oxygen Flow Rate (L/min) 2 Oxygen Delivery Method Room Air Weight: 100.879 kg Body Mass Index (BMI) 43.4 Intake & Output: Intake and Output for Last 24 Hours 02/13/24 02/14/24 02/15/24 23:59 23:59 23:59 Intake Total 5271.58 / 5271.58 1465.5 / 1465.5 Balance 5271.58 / 5271.58 1465.5 / 1465.5 Lab / Micro Data 02/15/24 06:57 02/15/24 06:57 Labs: Laboratory Results - last 24 hr 02/15/24 06:57: WBC 15.0 H, RBC 3.71 L, Hgb 11.7 L, Hct 36.1 L, MCV 97.3, MCH 31.5, MCHC 32.4, RDW Std Deviation 47.8 H, RDW Coeff of Apollo 13.3, Plt Count 310, MPV 10.5, Sodium 143, Potassium 3.8, Chloride 112 H, Carbon Dioxide 28.0, Anion Gap 3 L, BUN 8, Creatinine 0.66, Estim Creat Clear Calc 100.44, Est GFR (MDRD) Af Amer 120, Est GFR (MDRD) Non-Af 99, BUN/Creatinine Ratio 12.2, Glucose 103, Calcium 8.9 Micro: Microbiology 01/25/24 07:15 Swab (Method) Nasal Screen MRSA/MSSA - Final Physical Exam Narrative Vital signs stable and afebrile. SCDs and CHUY hose are in place bilaterally Patient is able to plantarflex and dorsiflex actively. Sensation is intact to light touch to saphenous, sural, superficial and deep peroneal, and tibial distribution. Dressings are clean dry and intact. Negative Homans bilaterally, negative signs and symptoms of DVT. Const alert, oriented x3 and no apparent distress Assessment & Plan Assessment/Plan (1) Status post total left knee replacement: PLAN: 1. S/P robotic assisted left total knee arthroplasty POD #1 2. Continue Pain Medications: Tylenol, meloxicam, oxycodone. Do not take any other nonsteroidal anti-inflammatories while using meloxicam/Mobic. 3. DVT Prophylaxis: Take 81 mg aspirin twice daily for 4 weeks postoperatively for DVT prophylaxis. Patient denies past history of DVT or pulmonary embolism. 4. PT/OT: Weightbearing as tolerated with walker 5. H & H: 11.7/36.1, asymptomatic. Labs have been reviewed and stable 6. Reactive leukocytosis: 15.0, Afebrile. Patient did receive Decadron intraoperatively. No clinical signs of infection. 7. Currently on doxycycline for 2 weeks postoperatively due to elevated BMI greater than 40.0. I discussed with the patient potential side effects of doxycycline including sensitivity to the sunlight and increased risk of skin burn. Recommend patient take appropriate precautions. Also recommend patient to take probiotic while on the antibiotic. Patient voiced understanding agreement. 8. Encouraged Incentive Spirometry 9. Patient is aware of postoperative constipation that can occur from 1-3 days postoperatively. Will continue with senna 2 tablets twice daily until first bowel movement. Patient was advised if not having a bowel movement after day 3 she is to contact orthopedics so appropriate change can be made. Patient voiced understanding. 10. Continue postoperative medical treatment per medicine 11. Disposition: Plan will be for discharge home today. Patient would like her medications E scribed to [facility]. Patient does have outpatient physical therapy established. She will follow-up per postoperative instructions. Upon discharge she will contact her office with any concerns or questions. We did discuss postoperative course of treatment in great detail. We discussed use of the CHUY hose. I have reviewed the [place] Automated Rx Reporting System (OARRS) report for this patient for refill pattern and other prescriber involvement as part of the appropriate surveillance for the provision of acute and chronic controlled medications. The report was requested and reviewed on the date of this entry and was considered in the prescribing process. This dictation was created using voice recognition software. Phonetic and/or grammatical errors may exist.
--- NOTE | 2024-02-15 16:10 | PCM.DC ---
Discharge Instructions Diet Discharge Diet: No restrictions Activity Discharge Activity: May Not Drive (while taking narcotic pain medications.) May shower in (days): 1 (Please turn dressing away from water. Okay to get wet as long as dressing is intact to skin.) Ice area for (Minutes): 20 (Every 1-2 hours while awake. Please place barrier between the skin and ice pack.) Weight Bearing Status: Weight bearing as tolerated Keep extremity elevated above heart level: Operative Extremity Dressing / Incision Call your doctor if your incision/area has: Continuous Slow Oozing, Sudden Increased Bleeding, Increased Pain/ Swelling, Increased Redness and Foul Smelling Discharge Call your doctor if you observe: Fever of 101 or Higher, Coldness, Increased Pain, Numbness or Tingling, Change in Color, Shortness of breath, Chest pain, Calf discomfort and Uncontrolled pain Remove Dressing in: 4 days (Okay to remove dressing on February 19, 2024) Additional Dressing/Incision Instructions:: Follow [facility] Post-op Instructions. Once postoperative dressing has been removed only use gentle soap and water over the incision. Do not use any ointments, Neosporin, salves, alcohol pads over the incision for 6 weeks postoperatively. Do not submerge underwater for 6 weeks postoperatively. Continue with CHUY hose/elastic stockings for 2 weeks postoperatively. May remove at nighttime but needs to be placed back on the leg during the day. Do NOT use alcohol with narcotic pain medication. Do NOT make important decisions while taking narcotic medication. If you have problems with taking your medication (rash, itching, nausea, etc.) call the office at once. Follow Up Care Test Results: Test results from this visit will be discussed in further detail at your follow-up appointment, if applicable. Discharge Plan Admission Admit Date/Time: 02/15/24 06:38 Attending Provider: Jurgen Jacobs Primary Care Provider: Timo Baumann Consulting Providers: Abigail Mulligan Discharge Orders/Prescriptions Prescriptions: New acetaminophen 500 mg Tablet 1,000 mg PO TID Qty: 0 0RF Rx Instructions: Do not take more than 3000 mg Tylenol in a 24-hour period. famotidine 20 mg Tablet 20 mg PO DAILY 30 Days Qty: 30 0RF aspirin 81 mg Tablet,Chewable 81 mg PO BIDCM 30 Days Qty: 60 0RF Rx Instructions: Take 81 mg aspirin twice daily for 4 weeks postoperatively for DVT prophylaxis. meloxicam 7.5 mg Tablet 7.5 mg PO BIDCM 30 Days Qty: 60 0RF Rx Instructions: Do not take any other nonsteroidal anti-inflammatories while using meloxicam/Mobic. oxycodone 5 mg Tablet 5 - 10 mg PO Q4H PRN PRN (Reason: Pain Score 4-10) 7 Days Qty: 42 0RF sennosides-docusate sodium [Stool Softener-Stimulant Laxat] 8.6-50 mg Tablet 2 tab PO BID 3 Days Qty: 12 0RF Rx Instructions: Take until first bowel movement, then as needed Continued cholecalciferol (vitamin D3) 125 mcg (5,000 unit) capsule 125 mcg PO DAILY Other Ambulatory Orders: 12 Lead EKG (Routine) Timeframe: 20240125 Location: None Selected Ordered By: Dr. Jurgen Jacobs Referrals / Follow Up: Physical,Therapy [Other] - 02/17/24 9:30 am Timo Baumann MD [Primary Care Provider] - Radha Winters PA [Med Staff - [facility] Practice Prof] - 02/29/24 9:30 am Disposition Disposition (needs filled in before D/C Order can be placed): Home, Self Care
[2024-02-15 17:08] VITALS: BP 117/61; PULSE 87; RESP 18; TEMP 36.8; O2SAT 96
== END 2024-02-15 18:10 | disposition home or self-care (01) ==
LOC: MS3 02-15 08:44 → SDC 02-15 17:15 → MS3 02-15 17:16
PROVIDERS: Anesthesiology; Admitting Provider Specialist; PCP Family Medicine; Referring Provider Specialist; Visit Provider Specialist
PROC: 0SRD0JZ Replacement of Left Knee Joint with Synthetic Substitute, Open Approach (ICD-10-PCS; CPT 27447; principal; 2024-02-14 08:15)
DX: M17.12 Unilateral primary osteoarthritis, left knee (principal); Z68.41 Body mass index [BMI] 40.0-44.9, adult; E66.01 Morbid (severe) obesity due to excess calories; Z79.82 Long term (current) use of aspirin; Z86.2 Personal history of diseases of the blood and blood-forming organs and certain disorders involving the immune mechanism; M41.9 Scoliosis, unspecified; Z97.3 Presence of spectacles and contact lenses; Z87.891 Personal history of nicotine dependence
CPT/HCPCS: 27447; S2900; 01402; 64447; 36415; 73560; 80048; 80076; 82962; 83735; 85025; 85027; 85610; 85730; 87081; 88305; 88311; 93005; 94668; 96365; 96366; 96375; 96376; 97110; 97116; 97162; 97166; 97530; 97535; 99221; 99252; 99406; C1776; J7050; J7120; A4216; G0378; G0463; J2405; J3475